=== PATIENT | female | born 1960 | race Caucasian/White ===

== ENCOUNTER 2017-12-18 06:03 | Day surgery (SDC) | payer BC ==
[~2017-12-18] VITALS: Ht 157.5 cm; Wt 68.0 kg
[2017-12-18] VITALS (12 sets, daily range): BP systolic 100–141; BP diastolic 59–82
[~2017-12-18 06:03] MED LIST: VITAMIN D; ceFAZolin 1gm in D5W 55ml IVPB ONE; celeBREX 200mg Cap **SURGERY PATIENTS ONLY ORAL SCH; oxyCONTIN 20mg tab ORAL ONE
[2017-12-18] MEDS ORDERED: Bupivacaine 0.25% Inj 30ml INJ ONE (06:30)
[2017-12-18] MEDS ORDERED: VITAMIN B COMPLEX PO (06:40)
[2017-12-18] MEDS ORDERED: VITAMIN D1000 UNI1 ORAL (06:40)
[2017-12-18] MEDS ORDERED: LR 1000ml 1,000 ML IVLG SCH (07:24)
--- NOTE | 2017-12-18 07:24 | Anethesia Preoperative Eval ---
Anesthesia Pre-op PMH/ROS General Date of Evaluation: Dec 18, 2017 Time of Evaluation: 07:20 Anesthesiologist: Callie ASA Score: ASA 2 Mallampati Score Class I : Soft palate, uvula, fauces, pillars visible Class II: Soft palate, uvula, fauces visible Class III: Soft palate, base of uvula visible Class IV: Only hard plate visible Mallampati Classification: Class II Surgeon: Butts Diagnosis: L CTS, wrist pain Surgical Procedure: L trigger finger release x 2 and CTR Anesthesia History: PONV Family History: no anesthesia problems Allergies: Coded Allergies: No Known Allergies (Verified , 12/18/17) Past Medical History Cardiovascular: Denies: HTN, CAD, PR, valve dz, arrhythmia, other Pulmonary: Denies: asthma, COPD, BINU, other Gastrointestinal/Genitourinary: Reports: GERD - mild, Denies: CRI, ESRD, other Neurologic/Psychiatric: Reports: depression/anxiety, Denies: dementia, CVA, TIA, other Endocrine: Reports: hypothyroidism - thyroid hyperfunction, Denies: DM, steroids, other HEENT: Denies: cataract (L), cataract (R), glaucoma, [place] (L), [place] (R), other Hematology/Immune: Denies: anemia, DVT, bleeding disorder, other Musculoskeletal/Integumentary: Denies: OA, RA, DJD, DDD, edema, other PMH Narrative: as above PSxH Narrative: Ankle ORIF Anesthesia Pre-op Phys. Exam Physician Exam Last Vital Signs Date Time Temp Pulse Resp B/P (MAP) Pulse Ox O2 Delivery O2 Flow Rate FiO2 12/18/17 06:36 97.0 79 18 141/82 99 Room Air 97.0 Constitutional: NAD Neurologic: CN 2-12 intact Cardiovascular: RRR, no M/R/G Respiratory: CTA Gastrointestinal: S/NT/ND Airway Exam Mallampati Score: Class II MO: full Neck: flexible ROM: full Teeth: intact Dentures: no upper, no lower Anesthesia Pre-op A/P Labs see chart Studies Pre-op Studies: EKG - NSR Risk Assessment & Plan Assessment: ASA 2 Plan: GA with LMA Status Change Before Surgery: No Pre-Antibiotics Drug: Ancef 1 gr. Given Within 1 Hr of Incision: Yes Time Given: 07:25 VACHAVA ISAACS M.D. Dec 18, 2017 07:24
[2017-12-18] MEDS ORDERED: Ketorolac 30mg Inj IV PRN (07:30)
[2017-12-18] MEDS ORDERED: DiphenhydrAMINE 50mg/ml Inj IVP PRN (07:30)
[2017-12-18] MEDS ORDERED: Ketorolac 30mg Inj ONE (07:30)
[2017-12-18] MEDS ORDERED: fentaNYL 100 mcg/2 mL IV ONE (07:30)
[2017-12-18] MEDS ORDERED: Meperidine 50mg/ml Inj(FOR RIGORS ONLY) IV PRN (07:30)
[2017-12-18] MEDS ORDERED: Propofol 200mg/20ml IV ONE (07:30)
[2017-12-18] MEDS ORDERED: Midazolam 2mg/2ml Inj ONE (07:30)
[2017-12-18] MEDS ORDERED: LR 1000ml ONE (07:30)
[2017-12-18] MEDS ORDERED: Hydromorphone 0.5mg/0.5ml inj IVP PRN (07:30)
[2017-12-18] MEDS ORDERED: NS Irrig 1000ml ONE (07:30)
[2017-12-18] MEDS ORDERED: Midazolam 2mg/2ml Inj IVP PRN (07:30)
[2017-12-18] MEDS ORDERED: Sterile Water Irrig 1000ml IRRIG ONE (07:30)
[2017-12-18] MEDS ORDERED: Dexamethasone 4mg/ml vial ONE (07:30)
--- NOTE | 2017-12-18 07:54 | Pre-Procedure Note/Attestation ---
Pre-Procedure Note/Attestation Complete Prior to Procedure Planned Procedure: left Procedure Narrative: ctr, triger finger release left thumb, left middle finger, and left ring finger Indications for Procedure Pre-Operative Diagnosis: left carpel tunnel, left thumb, middle, and ring trigger finger Attestation I attest that I discussed the nature of the procedure; its benefits; risks and complications; and alternatives (and the risks and benefits of such alternatives ), prior to the procedure, with the patient (or the patient's legal quality audit representative). I attest that, if there was a reasonable possibility of needing a blood transfusion, the patient (or the patient's legal quality audit representative) was given the [place] [facility] standardized written summary, pursuant to the Connor Boby Blood Safety Act ([place] Health and Safety Code # 1645, as amended). I attest that I re-evaluated the patient just prior to the surgery and that there has been no change in the patient's H&P, except as documented below: MITALI HUANG Dec 18, 2017 07:54
--- NOTE | 2017-12-18 07:55 | Operative Note - PDOC ---
Operative Note Operative Note Pre-op Diagnosis: left carpel tunnel, left thumb, middle, and ring trigger finger Procedure: see op report Operative Findings: consistent w/pre-op dx studies Anesthesia: MAC Complications: none Condition: stable Estimated Blood Loss: none Implant(s) used?: MITALI Louie Dec 18, 2017 07:55
--- NOTE | 2017-12-18 09:23 | Immediate Post-Op Evaluation ---
Immediate Post-Op Evalulation Immediate Post-Op Evalulation Procedure: L arm CTR trigger finger release x 3 Date of Evaluation: Dec 18, 2017 Time of Evaluation: 08:40 IV Fluids: 1000 Blood Products: none Estimated Blood Loss: min Urinary Output: none Blood Pressure Systolic: 106 Blood Pressure Diastolic: 58 Pulse Rate: 72 Respiratory Rate: 20 O2 Sat by Pulse Oximetry: 99 Temperature (Fahrenheit): 97.6 Pain Score (1-10): 2 Nausea: No Vomiting: No Complications none Patient Status: reacts, patent, none Hydration Status: adequate CHAVA MILLER M.D. Dec 18, 2017 09:22
[2017-12-18] MEDS ORDERED: D5 1/2NS 1,000 ML IV SCH (13:01)
[2017-12-18] MEDS ORDERED: Tylenol #3 tab (300mg/30mg) ORAL PRN (13:01)
[2017-12-18] MEDS ORDERED: HYDROmorphone 1mg/ml Carpuject SUBQ PRN (13:01)
[2017-12-18] MEDS ORDERED: Norco 5mg/325mg tab ORAL PRN (13:01)
--- NOTE | 2017-12-18 13:32 | 48 Hour Post Anesthesia Eval ---
Post Anesthesia Evaluation Procedure: L arm CTR trigger finger release x 3 Date of Evaluation: Dec 18, 2017 Time of Evaluation: 10:56 Blood Pressure Systolic: 124 0: 72 Pulse Rate: 68 Respiratory Rate: 20 Temperature (Fahrenheit): 97.6 O2 Sat by Pulse Oximetry: 98 Airway: patent Nausea: No Vomiting: No Pain Intensity: 2 Hydration Status: adequate Cardiopulmonary Status: stable Mental Status/LOC: patient returned to baseline Follow-up Care/Observations: n/a Post-Anesthesia Complications: none Follow-up care needed: ready to discharge CHAVA MILLER M.D. Dec 18, 2017 13:32
--- NOTE | 2017-12-18 17:45 | Operative Note - Dictated ---
DATE OF OPERATION: 12/18/2017 PREOPERATIVE DIAGNOSES: 1. Left wrist carpal tunnel syndrome. 2. Left thumb trigger finger. 3. Left middle finger trigger finger. 4. left ring trigger finger. POSTOPERATIVE DIAGNOSES: 1. Left wrist carpal tunnel syndrome. 2. Left thumb trigger finger. 3. Left middle finger trigger finger. 4. Left ring trigger finger. PROCEDURES: 1. Left wrist carpal tunnel release (median nerve decompression). 2. Synovectomy, left wrist flexor tendons and carpal tunnel. 3. Left thumb trigger finger release. 4. Left middle finger trigger finger release. 5. Left ring finger trigger finger release. SURGEON: Ze Butts M.D. ANESTHESIA: MAC. INDICATION FOR PROCEDURE: The patient is a pleasant female who has had progressive numbness and tingling as well as triggering of the thumb, middle, and ring finger. She failed conservative treatment with course of injections, to undergo open release. Risks, limitations, expectations, complications of procedure were discussed in detail. All questions addressed. DESCRIPTION OF PROCEDURE: An informed consent was obtained. The patient was brought to the operating room where the patient was placed under monitored anesthesia control. Tourniquet was applied to left proximal arm. Left arm was prepped and draped in a sterile manner. Time-out was performed. Ancef was administered. Attention turned first towards the middle trigger finger. The skin was incised. Blunt dissection down to the A1 omar of the middle finger was performed. Under direct visualization, A1 omar was released. There was no further catching or locking. Once that was completed, attention was turned towards the ring finger. The skin was then incised, blunt dissection down to the A1 omar of the ring finger was performed and the ring finger A1 omar along the ring finger was released. Both these cases, the finger was taken through range of motion to make sure that there was no additional triggering or locking. Once this was done, a horizontal incision along the A1 omar of the thumb was performed. Blunt dissection down to the flexor tendon was performed. Care was taken to protect the digital nerves at all times. was not visualized was not visualized, it was not in the field and protected by the retractors. At this point, under direct visualization A1 omar and the thumb was released proximally and distally under direct visualization. Once that was completed, attention turned towards the carpal tunnel release. The skin was marked out along the carpal tunnel. The skin was incised. Blunt dissection down to the palmar fascia was performed. The palmar fascia was incised and identified the transverse carpal ligament. The transverse carpal ligament was then incised in the midportion and once it was penetrated distally it was released using direct visualization with the blunt tenotomy scissors. Proximally it seemed like the motor branch was seen to go through the transverse carpal ligament. Therefore the dissection was carried carefully to avoid any injury to the motor branch. The transverse carpal was then released using spreading technique to break the transverse carpal ligament rather than to cut it. Once the transverse carpal ligament was completely released motor branch was again assessed and noted to be in continuity. Once the carpal tunnel was released, proximally and distally and the motor branch was identified and noted to be intact attention towards debulking some of the flexor tendon and the synovial tissue. Therefore the synovectomy of the flexor tendon was performed under direct visualization. Once that was completed, there was debulking of tenosynovial and carpal tunnel. Once that was completed, attention turned towards the skin closure with 4-0 nylon sutures. At this point, the wound was copiously irrigated. The skin was approximated using 4 nylon sutures. Compression dressing was applied. The patient was awoken and taken to recovery room with stable vital signs. ESTIMATED BLOOD LOSS: None. COMPLICATIONS: None SPECIMENS: None. IMPLANTS: None. Ze Butts M.D. DR: Aaron JOB#: [id number] CC:
== END 2017-12-18 10:15 | disposition home or self-care (01) ==
LOC: SUR 06:03
DX: G56.02 Carpal tunnel syndrome, left upper limb (principal); M65.312 Trigger thumb, left thumb; M65.332 Trigger finger, left middle finger; M65.342 Trigger finger, left ring finger; K21.9 Gastro-esophageal reflux disease without esophagitis; F32.9 Major depressive disorder, single episode, unspecified; F41.9 Anxiety disorder, unspecified; E03.9 Hypothyroidism, unspecified
CPT/HCPCS: 26055; 26145; 64721; J0690; J1100; J1885; J2250; J2405; J2704; J3010; J3490; J7120; 94003; 94150

== ENCOUNTER 2019-05-14 05:41 | Day surgery (SDC) | payer BC ==
[~2019-05-14] VITALS: Ht 157.5 cm; Wt 65.8 kg
[2019-05-14] VITALS (12 sets, daily range): BP systolic 93–132; BP diastolic 60–89
[~2019-05-14 05:41] MED LIST changes: +METHIMAZOLE5 MG PO; +VITAMIN B COMPLEX PO; +VITAMIN D1000 UNI1 ORAL; -ceFAZolin 1gm in D5W 55ml IVPB ONE; -celeBREX 200mg Cap **SURGERY PATIENTS ONLY ORAL SCH; -oxyCONTIN 20mg tab ORAL ONE
[2019-05-14] MEDS ORDERED: oxyCONTIN 20mg tab ORAL ONE (06:00)
[2019-05-14] MEDS ORDERED: celeBREX 200mg Cap **SURGERY PATIENTS ONLY ORAL ONE (06:00)
[2019-05-14] MEDS ORDERED: ceFAZolin 1gm IVPB IVPB ONE ×2 (06:00)
[2019-05-14] MEDS ORDERED: Bupivacaine 0.25% Inj 30ml INJ ONE ×2 (06:41→07:29)
[2019-05-14] MEDS ORDERED: LR 1000ml 1,000 ML IVLG SCH (06:42)
--- NOTE | 2019-05-14 06:42 | Anethesia Preoperative Eval ---
Anesthesia Pre-op PMH/ROS General Date of Evaluation: May 14, 2019 Anesthesiologist: Hiram ASA Score: ASA 2 Mallampati Score Class I : Soft palate, uvula, fauces, pillars visible Class II: Soft palate, uvula, fauces visible Class III: Soft palate, base of uvula visible Class IV: Only hard plate visible Mallampati Classification: Class II Surgeon: Benjamín Diagnosis: Right carpal tunnel Surgical Procedure: Right CTR Anesthesia History: none Family History: no anesthesia problems Allergies: Coded Allergies: No Known Allergies (Verified , 05/12/19) Medications: see eMAR Patient NPO?: Yes NPO Date: May 13, 2019 NPO Time: 22:00 Past Medical History Cardiovascular: Denies: HTN, CAD, [place], valve dz, arrhythmia, other Pulmonary: Denies: asthma, COPD, BINU, other Gastrointestinal/Genitourinary: Denies: GERD, CRI, ESRD, other Neurologic/Psychiatric: Denies: dementia, CVA, depression/anxiety, TIA, other Endocrine: Reports: other - hyperthyroidis; Denies: DM, hypothyroidism, steroids HEENT: Denies: cataract (L), cataract (R), glaucoma, [place] (L), [place]K (R), other Hematology/Immune: Denies: anemia, DVT, bleeding disorder, other Musculoskeletal/Integumentary: Denies: OA, RA, DJD, DDD, edema, other PSxH Narrative: lap appy, right ankle sx, left CTR Anesthesia Pre-op Phys. Exam Physician Exam Last Vital Signs Date Time Temp Pulse Resp B/P (MAP) Pulse Ox O2 Delivery O2 Flow Rate FiO2 05/14/19 06:10 Room Air 05/14/19 06:07 97.1 74 18 132/89 98 Constitutional: NAD Cardiovascular: RRR Respiratory: CTA Airway Exam Mallampati Score: Class II MO: full ROM: full Teeth: intact Anesthesia Pre-op A/P Labs see chart Studies Pre-op Studies: EKG - sr Risk Assessment & Plan Assessment: ASA II Plan: GA Status Change Before Surgery: No Pre-Antibiotics Drug: Ancef 1g Given Within 1 Hr of Incision: Yes Avani Warren MD May 14, 2019 06:42
[2019-05-14] MEDS ORDERED: LORazepam Inj 2mg/ml 1ml IV PRN (06:45)
[2019-05-14] MEDS ORDERED: Metoclopramide 10mg/2ml Inj IVP PRN (06:45)
[2019-05-14] MEDS ORDERED: Midazolam 2mg/2ml Inj IVP PRN (06:45)
[2019-05-14] MEDS ORDERED: fentaNYL 100 mcg/2 mL IV PRN (06:45)
[2019-05-14] MEDS ORDERED: DiphenhydrAMINE 50mg/ml Inj IVP PRN (06:45)
[2019-05-14] MEDS ORDERED: Ketorolac 30mg Inj IV PRN (06:45)
[2019-05-14] MEDS ORDERED: Hydromorphone 0.5mg/0.5ml inj IVP PRN (06:45)
[2019-05-14] MEDS ORDERED: Propofol 200mg/20ml IV ONE (06:48)
[2019-05-14] MEDS ORDERED: Midazolam 2mg/2ml Inj ONE (06:48)
[2019-05-14] MEDS ORDERED: Lidocaine 1% MPF 10mg/ml 5ml ONE (06:48)
[2019-05-14] MEDS ORDERED: fentaNYL 100 mcg/2 mL IV ONE (06:48)
[2019-05-14] MEDS ORDERED: Dexamethasone 4mg/ml vial ONE (06:49)
[2019-05-14] MEDS ORDERED: Ketorolac 30mg Inj ONE (06:49)
[2019-05-14] MEDS ORDERED: Zemuron 50mg/5ml Inj IV ONE (06:50)
[2019-05-14] MEDS ORDERED: Sterile Water Irrig 1000ml IRRIG ONE (07:00)
[2019-05-14] MEDS ORDERED: LR 1000ml ONE (07:00)
--- NOTE | 2019-05-14 07:13 | Pre-Procedure Note/Attestation ---
Pre-Procedure Note/Attestation Complete Prior to Procedure Planned Procedure: right Procedure Narrative: carpel tunnel release and right ring finger trigger finger release Indications for Procedure Pre-Operative Diagnosis: right carpel tunnel syndrome, right ring finger trigger finger Attestation I attest that I discussed the nature of the procedure; its benefits; risks and complications; and alternatives (and the risks and benefits of such alternatives ), prior to the procedure, with the patient (or the patient's legal used equipment sales representative). I attest that, if there was a reasonable possibility of needing a blood transfusion, the patient (or the patient's legal used equipment sales representative) was given the [facility] standardized written summary, pursuant to the Connor [place] Blood Safety Act ([place] Health and Safety Code # 1645, as amended). I attest that I re-evaluated the patient just prior to the surgery and that there has been no change in the patient's H&P, except as documented below: Ze Butts MD May 14, 2019 07:13
--- NOTE | 2019-05-14 07:14 | Operative Note - PDOC ---
Operative Note Operative Note Pre-op Diagnosis: right carpel tunnel syndrome, right ring finger trigger finger Procedure: see op report Post-op Diagnosis: same as pre-op plus Operative Findings: consistent w/pre-op dx studies Anesthesia: general Specimen: none Complications: none Condition: stable Estimated Blood Loss: none Implant(s) used?: No Ze Butts MD May 14, 2019 07:14
[2019-05-14] MEDS ORDERED: D5 1/2NS 1,000 ML IV SCH ×2 (07:15→15:00)
[2019-05-14] MEDS ORDERED: HYDROcodone/Acetamin 5/325 tab ORAL PRN ×2 (07:15→15:00)
[2019-05-14] MEDS ORDERED: HYDROmorphone 1mg/ml Carpuject SUBQ PRN ×2 (07:15→15:00)
[2019-05-14] MEDS ORDERED: Tylenol #3 tab (300mg/30mg) ORAL PRN ×2 (07:15→15:00)
[2019-05-14] MEDS ORDERED: NS Irrig 1000ml IRRIG ONE (07:30)
--- NOTE | 2019-05-14 08:04 | Immediate Post-Op Evaluation ---
Immediate Post-Op Evalulation Immediate Post-Op Evalulation Procedure: right ctr and right ring [id number] finger release Date of Evaluation: May 14, 2019 Time of Evaluation: 08:06 IV Fluids: 500 Blood Products: 0 Estimated Blood Loss: min Urinary Output: 0 Blood Pressure Systolic: 99 Blood Pressure Diastolic: 60 Pulse Rate: 69 Respiratory Rate: 16 O2 Sat by Pulse Oximetry: 99 Temperature (Fahrenheit): 97.6 Pain Score (1-10): 0 Nausea: No Vomiting: No Complications 0 Patient Status: awake, reacts, patent, none Hydration Status: adequate Drug: Ancef 1g Given Within 1 Hr of Incision: Yes Avani Warren MD May 14, 2019 08:04
--- NOTE | 2019-05-14 08:05 | 48 Hour Post Anesthesia Eval ---
Post Anesthesia Evaluation Procedure: right ctr and right ring [id number] finger release Date of Evaluation: May 14, 2019 Airway: patent Nausea: No Vomiting: No Pain Intensity: 0 Hydration Status: adequate Cardiopulmonary Status: at baseline Mental Status/LOC: patient returned to baseline Post-Anesthesia Complications: 0 Follow-up care needed: ready to discharge Avani Warren MD May 14, 2019 08:05
--- NOTE | 2019-05-14 17:30 | Operative Note - Dictated ---
DATE OF OPERATION: 05/14/2019 PREOPERATIVE DIAGNOSES: 1. Right carpal tunnel syndrome. 2. Right ring trigger finger. POSTOPERATIVE DIAGNOSES: 1. Right carpal tunnel syndrome. 2. Right ring trigger finger. PROCEDURES: 1. Right wrist carpal tunnel release (median nerve decompression). 2. Synovectomy right wrist flexor tendons. 3. Release right ring trigger finger. SURGEON: Ze Butts M.D. ANESTHESIA: MAC with local. INDICATION FOR PROCEDURE: The patient is a pleasant woman, who has had progressive numbness, tingling as well as locking in the ring finger. She failed conservative treatment, elected to undergo right carpal tunnel release with release of the A1 omar. Risks, limitations, expectations, complication of the procedure were discussed in detail. All questions addressed. DESCRIPTION OF PROCEDURE: After informed consent was obtained, the patient was brought to the operating room and placed the patient under monitored anesthesia control. Right wrist was prepped and draped in a sterile manner. Time-out was performed. The carpal tunnel was identified. The Esmarch used on the extremity, the skin was incised. The palmar fascia was identified and incised. Transverse carpal tunnel was then visualized and then incised using a 15 blade scalpel. Once the transverse carpal tunnel was entered, the transverse skin was released both proximally and distally using direct visualization with the blunt-tipped tenotomy scissors. Once that was done, a synovectomy of the flexor tendon was performed decompressing the carpal tunnel. Once that was done, the wound was copiously irrigated. Hemostasis achieved using electrocautery. The skin was closed using nylon sutures. Once that was completed, attention turned from a longitudinal incision along the A1 omar was performed. The A1 omar was released. Of note, there is moderate tendinosis of the flexor tendon that would explain the severity of her trigger finger. Once the A1 omar was released, the wound was copiously irrigated. Skin was closed using nylon sutures. Steri-Strips and a sterile dressing were applied. The patient was awoken and taken to recovery room with stable signs. ESTIMATED BLOOD LOSS: None. COMPLICATIONS: None. SPECIMENS: None. IMPLANTS: None. Ze Butts M.D. DR: ANNELISE JOB#: [id number] CC:
== END 2019-05-14 11:20 | disposition home or self-care (01) ==
LOC: SUR 05:41
DX: G56.01 Carpal tunnel syndrome, right upper limb (principal); M65.341 Trigger finger, right ring finger; Z90.89 Acquired absence of other organs
CPT/HCPCS: 25105; 26055; 64721; J0690; J1100; J1885; J2250; J2405; J2704; J3010; J3490; 94003; 94150